=== PATIENT | male | born 1980 | race Caucasian/White ===

== ENCOUNTER → 2019-09-03 | Emergency (ER) | payer OTHER ==
[~2019-09-03] VITALS: Ht 182.9 cm; Wt 92.9 kg
[~2019-09-03] MED LIST: ALBU18HF2 INH; ALBU6.7H9 INH; AZIT250T PO; CLON-527 PO; FLUO20CA39 PO; HYDROcodone/acetaminophen 10/325mg tab PO ONE; OMEP-84 PO; PRED20TA PO; TAM75C PO; acetaminophen 325mg tablet PO ONE; ipratropium/albuterol 3ml nebule NEB ONE; ketorolac trometh. 30mg/ml inj. IV ONE; methylPREDNISolone sod succ 125mg/2ml vial IV ONE; normal saline 1000ML IV soln IV ONE; ondansetron/PF 4mg/2ml inj IV ONE; oseltamivir phos 75mg capsule PO ONE
[2019-09-03 13:00] LABS: BASOPHILS % (AUTO) 0.3 % (0-1); EOSINOPHILS % (AUTO) 0.1 % (0-6); HEMATOCRIT 39.1 % (42.0-52.0); HEMOGLOBIN 13.8 g/dl (14.0-17.9); LYMPHOCYTES # (AUTO) 0.2 X10'3 (1.1-4.8); LYMPHOCYTES % (AUTO) 3.9 % (21-51); MEAN CORPUSCULAR HEMOGLOBIN 32.3 PG (27.0-31.0); MEAN CORPUSCULAR HGB CONC 35.3 g/dL (33.0-36.5); MEAN CORPUSCULAR VOLUME 91.3 FL (78-98); MEAN PLATELET VOLUME 8.1 FL (7.4-10.4); MONOCYTES # (AUTO) 0.6 X10'3 (0-0.9); NEUTROPHILS # (AUTO) 5.2 X10'3 (1.8-7.7); NEUTROPHILS % (AUTO) 85.7 % (42-75); PLATELET COUNT 231 X10'3 (140-440); RED BLOOD COUNT 4.29 X10'6 (4.70-6.10); RED CELL DISTRIBUTION WIDTH 11.8 % (11.5-14.5); WHITE BLOOD COUNT 6.1 X10'3 (4.5-11.0)
[2019-09-03 13:16] LABS: ALANINE AMINOTRANSFERASE 19 U/L (12-78); ALBUMIN 4.2 G/DL (3.4-5.0); ALBUMIN/GLOBULIN RATIO 1.4 (1.1-1.5); ALKALINE PHOSPHATASE 67 IU/L (46-116); ANION GAP 14 (8-16); ASPARTATE AMINO TRANSFERASE 10 U/L (10-37); BILIRUBIN,TOTAL 0.4 MG/DL (0.1-1.0); BLOOD UREA NITROGEN 12 MG/DL (7-18); BUN/CREATININE RATIO 10.9 (5.4-32.0); CALCIUM 8.5 MG/DL (8.5-10.1); CHLORIDE 106 MMOL/L (99-107); GLUCOSE 98 MG/DL (70-104); POTASSIUM 3.5 MMOL/L (3.5-5.1); SODIUM 139 MMOL/L (135-145); TOTAL PROTEIN 7.2 G/DL (6.4-8.2); eGFR 75 ML/MIN
--- NOTE | 2019-09-03 14:08 | NUR ---
PT UNABLE TO TOLERATE PO MEDS AT THIS TIME. MEDICATED PT WITH ZOFRAN. PRIMARY RN TO [facility].
[2019-09-03 15:35] VITALS: BP 106/52
== END | disposition home or self-care (01) ==
LOC: ER 12:13
DX: J11.1 Influenza due to unidentified influenza virus with other respiratory manifestations (principal); R11.2 Nausea with vomiting, unspecified; F41.9 Anxiety disorder, unspecified; F32.9 Major depressive disorder, single episode, unspecified; F12.90 Cannabis use, unspecified, uncomplicated; Z87.442 Personal history of urinary calculi; Z86.69 Personal history of other diseases of the nervous system and sense organs; Z88.8 Allergy status to other drugs, medicaments and biological substances; Z79.899 Other long term (current) drug therapy
CPT/HCPCS: 36415; 71045; 80053; 84145; 85025; 87040; 87502; 87503; 94640; 96361; 96374; 96375; 99284; J1885; J2405; J2930; J7030

== ENCOUNTER 2019-11-27 11:45 | Emergency (ER) | payer OTHER ==
[~2019-11-27] VITALS: Ht 182.9 cm; Wt 92.9 kg
[~2019-11-27 11:45] MED LIST changes: -AZIT250T PO; -HYDROcodone/acetaminophen 10/325mg tab PO ONE; -PRED20TA PO; -TAM75C PO; -acetaminophen 325mg tablet PO ONE; -ipratropium/albuterol 3ml nebule NEB ONE; -ketorolac trometh. 30mg/ml inj. IV ONE; -methylPREDNISolone sod succ 125mg/2ml vial IV ONE; -normal saline 1000ML IV soln IV ONE; -ondansetron/PF 4mg/2ml inj IV ONE; -oseltamivir phos 75mg capsule PO ONE
[2019-11-27 11:52] VITALS: BP 107/76
[2019-11-27] MEDS ORDERED: oxymetazoline 15 ML nasal spray NS ONE (12:15)
[2019-11-27] MEDS ORDERED: FLUT16SP2 BOTHNARES (12:17)
[2019-11-27] MEDS ORDERED: OXYM-21 BOTHNARES (12:17)
== END 2019-11-27 12:30 | disposition home or self-care (01) ==
LOC: ER 11:45
DX: R09.81 Nasal congestion (principal); F41.9 Anxiety disorder, unspecified; F32.9 Major depressive disorder, single episode, unspecified; F12.90 Cannabis use, unspecified, uncomplicated; Z86.69 Personal history of other diseases of the nervous system and sense organs; Z79.899 Other long term (current) drug therapy
CPT/HCPCS: 99283

== ENCOUNTER 2021-03-28 13:26 | Emergency (ER) | payer OTHER ==
[~2021-03-28] VITALS: Ht 182.9 cm; Wt 94.5 kg
[~2021-03-28 13:26] MED LIST changes: +FLUT16SP2 BOTHNARES; +OXYM-21 BOTHNARES
[2021-03-28 13:30] VITALS: BP 113/83
== END 2021-03-28 14:34 | disposition home or self-care (01) ==
LOC: ER 13:27
DX: S61.217A Laceration without foreign body of left little finger without damage to nail, initial encounter (principal); S61.213A Laceration without foreign body of left middle finger without damage to nail, initial encounter; S61.215A Laceration without foreign body of left ring finger without damage to nail, initial encounter; F41.9 Anxiety disorder, unspecified; F32.9 Major depressive disorder, single episode, unspecified; F12.90 Cannabis use, unspecified, uncomplicated; Z88.8 Allergy status to other drugs, medicaments and biological substances; Z86.69 Personal history of other diseases of the nervous system and sense organs; Z87.442 Personal history of urinary calculi; Z79.899 Other long term (current) drug therapy; W45.8XXA Other foreign body or object entering through skin, initial encounter; Y93.89 Activity, other specified; Y92.89 Other specified places as the place of occurrence of the external cause; Y99.8 Other external cause status
CPT/HCPCS: 99281

== ENCOUNTER 2025-02-14 10:28 | Emergency (ER) | payer OTHER ==
[~2025-02-14] VITALS: Ht 182.9 cm; Wt 100.0 kg
[~2025-02-14 10:28] MED LIST changes: +ALBU6.7H14 INH; -ALBU6.7H9 INH
--- NOTE | 2025-02-14 11:03 | Physician Documentation ---
History of Present Illness ~ Chief Complaint: Foreign body Stated Complaint: FISH HOOK IN HAND Time Seen by MD: 11:00 Primary Medical Doctor: [facility] This is a 44-year-old male who reports that he was fishing this morning when he got a multi-prolonged fishing hook lodged into the dorsum of the right hand. He denies any other injuries or concerns. He is unsure in his last tetanus shot was. Tetanus within 5 years: No (unknown) Medication Reconciliation Allergies: Coded Allergies: zolmitriptan (Verified Allergy, Unknown, HEADACHE, 10/27/14) Scheduled Albuterol Sulfate (Ventolin Hfa), 2 PUFFS INH Q4HPRN Albuterol Sulfate (Proventil Hfa), 2 PUFFS INH Q6H Cephalexin*Monohydrate* (Keflex*), 1 CAP PO TID Fluoxetine Hcl* (Prozac*), 40 MG PO DAILY, (Reported) Fluticasone Propionate (Flonase), 2 SPRAYS BOTHNARES DAILY Omeprazole* (Prilosec*), 20 MG PO DAILY, (Reported) Oxymetazoline HCl (Oxymetazoline HCl), 2 SPRAYS BOTHNARES Q12H Scheduled PRN Clonazepam* (Klonopin*), 1 MG PO DAILY PRN, (Reported) Past Medical History Past Medical History: Headache, Seizures, Kidney Stones, *ENDOCRINE*, *PSYCH*, Anxiety, Depression Past Surgical History: no surgical history Alcohol Use: None Drug Use: marijuana Lives with: Mother Lives In: Home Review of Systems ROS As stated above in the HPI, otherwise all systems are reviewed and negative. Physical Exam Vital Signs: Temperature: 98.7, Source: Temporal, Heart Rate: 70, Respiratory Rate: 18, BP: 130/79, Pulse Oximetry: 99, Weight: 100.000 Oxygen Flow Rate: 0 Physical Exam General: Alert, no apparent distress. Neck: Full range of motion. Respiratory: Lungs clear, no respiratory distress. Chest: No accessory muscle use. Cardiovascular: Regular rate and rhythm, no murmurs. Gastrointestinal: Soft, nontender, nondistended. Bowels sounds present. Extremities: Normal range of motion, no deformity. Fishing hook protrudes from dorsum right hand. Neurologic: Oriented x4. Psychiatric: Normal mood and affect. Skin: Normal color, warm and dry. No edema, no ecchymosis. Procedures Procedures Foreign body, fissure, I have removed in the dorsum of the right hand. This was accomplished after 1st obtaining consent and then cleansing the skin thoroughly with Betadine. The area around the embedded fishhook was anesthetized with a total of 2 mL of 1% lidocaine with epinephrine to get effect. The fishhook was then pushed through with the assistance of a tiny cut made with an 11 blade s calpel to facilitate removal. It was removed in its entirety. The patient tolerated well. Progress Results/Orders Results/Orders Orders - MISA DOMINIQUE [employer] Hand, Complete (3vw Min) (02/14/25 11:22) Dressing Orders (02/14/25 11:23) Laceration/I&D Tray Set Up (02/14/25 11:23) Wound Care Orders (02/14/25 11:23) Completed Orders - MISA DOMINIQUE [employer] Hand, Complete (3vw Min) (02/14/25 11:22) Lidocaine 1% W/Epi 1:200,000 (Xylocaine (02/14/25 11:25) Tetanus/Pertuss/Diph Acell/Pf (Boostrix (02/14/25 11:25) Lidocaine 1% W/Epi 1:100,000 (Xylocaine (02/14/25 11:55) Medications Received in ER Medications (Trade) Dose Ordered Sig/Cynthia Route PRN Reason Start Time Stop Time Status Last Admin Dose Admin (Boostrix vaccine syringe) 0.5 ml ONCE ONCE IMVAC 02/14/25 11:25 02/14/25 11:26 DC 02/14/25 11:46 0.5 ML Vital Signs 02/14/25 10:34 Temp 98.7 Pulse 70 Resp 18 B/P (MAP) 130/79 Pulse Ox 99 O2 Flow Rate 0 EKG/XRAY/CT/US/VASC/MRI Bone/Soft Tissue X-Ray (Spine) : Additional Comment [address], [place], [facility] [address] DIAGNOSTIC RADIOLOGY Patient: DANY GRISSOM Medical Record: [id number] [facility] : 1980, Age: 44 Sex: Male Location: ER Patient Status: REG ER Service Date/Time: 02/14/25/ 1122 Ordering Physician: MISA DOMINIQUE NP Exam: HAND, COMPLETE (3VW MIN) CLINICAL INDICATION: Pain; foreign body right hand TECHNIQUE: 3 radiographic views of the right hand were obtained. Comparison: None FINDINGS/IMPRESSION: There is no evidence of acute fracture or dislocation. The visualized joint space is well maintained. The alignment is anatomical. There is a 8 mm curvilinear radiopaque density in the soft tissues of the posterior dorsal wrist. Electronically Signed by:DUKE SALAZAR MD Date & Time: 02/14/25 1154 Dictated by: DUKE SALAZAR MD Dictation date and time: 02/14/25 112 Primary Care Provider: NO PRIMARY CARE PROVIDER cc: MISA DOMINIQUE NP ~ Medical Decision Making Finger Diff Dx:Considerations: Include: Abrasion, Cellulitis, Contusion, Dislocation Departure Time of Disposition: 12:29 Impression: Primary Impression: Foreign body of right hand Discharge Instructions: Foreign Body Additional Instructions: Your tetanus was updated. Your fish hook was removed. Take the prescribed antibiotics. Keep wound clean, wash with soap and water and apply antibiotic ointment. Return if worse. Referrals: NO PRIMARY CARE PROVIDER (PCP) Prescriptions Cephalexin*Monohydrate* (Keflex*) 500 Mg Capsule 1 CAP PO TID for 7 Days, #21 CAP Prov: MISA DOMINIQUE NP 02/14/25 Education Educated: Patient Educated regarding: diagnosis, treatment, prognosis, need for follow up Signature Scribe Signature: no scribe Attestation: The note accurately reflects work and decisions made by me.Misa Zuniga NP 02/14/25 11:29 MISA DOMINIQUE NP Feb 14, 2025 11:03
[2025-02-14] MEDS: TETanus/Pertussis (Acell)/Diphther VAC/PF (Tdap-Adult) 0.5ml syringe IMVAC ONE (11:46)
[2025-02-14] MEDS: LIDOcaine 1% W/epiNEPHrine 1:200,000 10ml vial IJ ONE (11:47)
--- NOTE | 2025-02-14 11:56 | RADIOLOGY REPORT ---
CLINICAL INDICATION: Pain; foreign body right hand TECHNIQUE: 3 radiographic views of the right hand were obtained. Comparison: None FINDINGS/IMPRESSION: There is no evidence of acute fracture or dislocation. The visualized joint space is well maintained. The alignment is anatomical. There is a 8 mm curvilinear radiopaque density in the soft tissues of the posterior dorsal wrist.
[2025-02-14] MEDS: LIDOcaine 1% W/epiNEPHrine 1:100,000 20ml vial IJ ONE (12:16)
[2025-02-14] MEDS ORDERED: CEPH-585 PO (12:31)
[2025-02-14 12:46] VITALS: BP 119/89; PULSE 59; RESP 16; TEMP 98.7; O2SAT 98
== END 2025-02-14 12:48 | disposition home or self-care (01) ==
LOC: ER 10:29
DX: S61.441A Puncture wound with foreign body of right hand, initial encounter (principal); W26.8XXA Contact with other sharp object(s), not elsewhere classified, initial encounter; Y93.89 Activity, other specified; Y92.89 Other specified places as the place of occurrence of the external cause; Y99.8 Other external cause status
CPT/HCPCS: 10120; 73130; 90471; 90715; 99285; A6449